=== PATIENT | female | born 1960 | race Caucasian/White ===

== ENCOUNTER → 2017-09-13 09:28 | Outpatient (CLI) | payer BC, SELFPAY ==
[2017-09-13 12:01] LABS: Absolute Lymphocyte Count 1.57 X10^3/ul (0.83-4.51); Absolute Neutrophil Count 4.3 X10^3/uL (2.0-7.7); Basophil# 0.02 X10^3/uL; Basophil% 0.3 % (0-1); Eosinophil# 0.13 X10^3/uL; Hematocrit 37.7 % (37-47); Hemoglobin 12.6 g/dl (12.0-15.0); Lymphocyte # 1.57 X10^3/ul (4.0); Lymphocyte % 24.7 % (19-41); Mean Corp Hgb Conc 33.4 g/gl (32-36); Mean Corpuscular Hgb 27.4 pg (27.0-32.0); Mean Platelet Vol. 10.5 fl (6.2-12.0); Monocyte# 0.38 X10^3/uL; Neutrophil # 4.25 X10^3/uL (2.7-7.7); Neutrophil % 66.8 % (47-70); Platelet Count 212 K/mm3 (150-450); RBC Distribution Width CV 13.1 % (11.6-14.6); RBC Distribution Width SD 38.8 fl (35.1-43.9); White Blood Count 6.4 K/mm3 (4.4-11.0)
[2017-09-13 12:08] LABS: POSITIVE COUNT NO; POSITIVE DIFFERENTIAL NO; POSITIVE MORPHOLOGY NO
[2017-09-13 12:30] LABS: Anion Gap 8 (5-15); BUN 15 mg/dL (7-18); BUN/Creat Ratio 17.6 RATIO (10-20); Calcium,Total 9.4 mg/dL (8.5-10.1); Chloride 101 mmol/L (98-107); Creatinine, Serum 0.85 mg/dL (0.55-1.02); EST Glomerular Filtration Rate 73 mL/min (>60); Est Glom Filt Rate - Afr Amer 88 mL/min (>60); Glucose 85 mg/dL (74-106); Potassium 3.8 mmol/L (3.5-5.1); Sodium Level 142 mmol/L (136-145); T4 Free Direct 0.97 ng/dL (0.76-1.46); Thyroid Stim Hormone (TSH) 1.72 uIU/mL (0.358-3.74)
== END ==
PROVIDERS: Family Provider Family Medicine; PCP Family Medicine; Visit Provider Family Medicine
DX: I10 Essential (primary) hypertension (principal); E66.01 Morbid (severe) obesity due to excess calories
CPT/HCPCS: 36415; 80048; 84439; 84443; 85025

== ENCOUNTER → 2018-02-18 08:49 | Outpatient (CLI) | payer BC, SELFPAY ==
[2016-10-07 07:17] VITALS: BMI 42.4
[2018-02-18 12:15] LABS: Absolute Lymphocyte Count 1.19 X10^3/ul (0.83-4.51); Absolute Neutrophil Count 2.9 X10^3/uL (2.0-7.7); Basophil# 0.02 X10^3/uL; Basophil% 0.4 % (0-1); Eosinophil# 0.07 X10^3/uL; Eosinophils% 1.6 % (0-5); Hematocrit 42.4 % (37-47); Hemoglobin 13.6 g/dl (12.0-15.0); Lymphocyte # 1.19 X10^3/ul (4.0); Lymphocyte % 26.7 % (19-41); Mean Corp Hgb Conc 32.1 g/gl (32-36); Mean Corpuscular Hgb 26.5 pg (27.0-32.0); Mean Corpuscular Volume 82.7 fL (81-99); Mean Platelet Vol. 10.5 fl (6.2-12.0); Monocyte% 6.7 % (0-10); Neutrophil # 2.88 X10^3/uL (2.7-7.7); Neutrophil % 64.6 % (47-70); Platelet Count 198 K/mm3 (150-450); RBC Distribution Width CV 13.2 % (11.6-14.6); RBC Distribution Width SD 39.9 fl (35.1-43.9); Red Blood Count 5.13 M/mm3 (4.2-5.4); White Blood Count 4.5 K/mm3 (4.4-11.0)
[2018-02-18 12:24] LABS: POSITIVE COUNT NO; POSITIVE DIFFERENTIAL NO; POSITIVE MORPHOLOGY NO
[2018-02-18 12:27] LABS: Anion Gap 9 (5-15); BUN 15 mg/dL (7-18); BUN/Creat Ratio 16.6 RATIO (10-20); Calcium,Total 9.1 mg/dL (8.5-10.1); Chloride 102 mmol/L (98-107); Creatinine, Serum 0.91 mg/dL (0.55-1.02); EST Glomerular Filtration Rate 68 mL/min (>60); Est Glom Filt Rate - Afr Amer 82 mL/min (>60); Glucose 90 mg/dL (74-106); Potassium 3.7 mmol/L (3.5-5.1); Sodium Level 142 mmol/L (136-145)
[2018-02-18 12:34] LABS: Vitamin B12 404 pg/mL (211-911); Vitamin D,25 Hydroxy 23.5 ng/mL (29.95-100.01)
[2018-02-18 14:01] LABS: Hemoglobin A1c 5.7 % (4.2-6.3)
== END ==
PROVIDERS: Family Provider Family Medicine; PCP Family Medicine; Visit Provider Family Medicine
DX: R73.01 Impaired fasting glucose (principal); I10 Essential (primary) hypertension; E55.9 Vitamin D deficiency, unspecified; R79.89 Other specified abnormal findings of blood chemistry
CPT/HCPCS: 36415; 80048; 82306; 82607; 83036; 85025

== ENCOUNTER → 2018-03-10 07:27 | Outpatient (CLI) | payer BC, SELFPAY ==
--- NOTE | 2018-03-10 07:30 | BI_ITS ---
MAMMOGRAPHY - BILATERAL SCREENING REASON FOR EXAM: Female, 57 years old. Routine annual screening examination. PERTINENT HISTORY: Non-contributory. TECHNIQUE: Digital bilateral breast kolby (3D mammographic acquisition) in the CC and MLO projections. 2-D mediolateral oblique (MLO) and craniocaudad (CC) views of both breasts were obtained. CAD: Full Field Digital Mammography with Computer Added Detection was performed. COMPARISON: Comparison is made with prior study dated April 29, 2016 and August 03, 2014. FINDINGS: Breast Composition: There are scattered areas of fibroglandular density. There are no dominant masses or suspicious calcifications. A tissue clip marker is once again seen within a tiny nodule in the upper outer quadrant of the left breast. No other significant abnormalities are identified. There has been no significant change since the prior study. BI/SCREENING MAMM (CAD), BILAT IMPRESSION: Stable bilateral screening mammogram. Yearly follow-up mammogram recommended. (A) ASSESSMENT CATEGORY: BIRADS Category 2: Benign. A letter regarding these results will be sent to the patient by the facility within 30 days. Approximately 10% of breast cancers are not detected by mammography. A normal mammogram should not delay biopsy of a clinically suspicious abnormality. [id number] Electronically Signed: Les Ma MD at 10:49 EST Tel [phone], Service support ,
--- OUTSIDE RECORDS SUMMARY | 2018-05-14 19:47 | XMS RPT_ITS | Clinical Summary ---
:[address] [facility] Address [address] [place] [address] Phone Care Team Providers Name Role Phone Marie Dean Unavailable Conditions or Problems Problem Problem Onset Status Entry Provider Comment Standard Annotate Name Code Date Date Description Orthopedic 336773070 Active Yandy Montiel Postoperative surgical (SNOMED 10/20 10/20 [facility] physical aftercare CT) examination Achilles 625859665 Active Babatunde Bansal Achilles bursitis, (SNOMED 04/21 04/[address]) Inflammato 1341010 Active Babatunde Bansal Arthritis ry (SNOMED 05/29 05/[address]) Sprain of S93.499A Active Yandy Montiel Sprain of other (ICD-10-CM 05/22 05/22 [facility] other ligament ligament ) of unspecified of ankle, initial unspecifie encounter d ankle, initial encounter Achilles 11602417 Active Yandy Montiel Achilles tendinitis (SNOMED 05/22 05/22 [facility] tendinitis , right CT) Fibrocysti 31008558 Active Radha Churchill Fibrocystic c breast (SNOMED 08/03 08/20 [facility] disease of changes CT) breast Other 727893721 Inactive Radha Churchill Abnormal abnormal (abnormal) (SNOMED 08/03 08/20 [facility] findings on lesion on findings CT) diagnostic left breast on imaging of ultrasound radiologic breast and al mammograms examinatio n of breast PES PLANUS 41342063 Active Yandy Montiel Pes planus (SNOMED 09/[address]) TENDINITIS 14890174 Active Yandy Montiel Tendinitis (SNOMED 09/[address]) LUMBAR 101565286 Active Yandy Montiel Disorder of DISC (SNOMED 09/30 [facility] lumbar disc DISORDER CT) BACK PAIN, 981810625 Active Yandy Montiel Low back pain LUMBAR (SNOMED 09/[address]) Medications Medication Instructions Start Stop Generic Name NDC Provider Date Date KEFLEX 500 MG one tablet by CEPHALEXIN [id number] Yandy Montiel CAPS mouth four 29 10/30 [place] times a day for 10 days NITROGLYCERIN apply to / NITROGLYCERIN [id number] Yandy Montiel 0.1 MG/HR PT24 affected area [place] and remove and replace every 2 days LISINOPRIL-HYDRO daily / LISINOPRIL-HYDRO 51933286447 Yandy Montiel CHLOROTHIAZIDE 08 CHLOROTHIAZIDE [place] 20-12.5 MG TABS B-12 5000 MCG daily / CYANOCOBALAMIN 89869110287 Yandy Montiel SUBL 08 [place] METHOTREXATE / METHOTREXATE 43789298216 Babatunde L TABS 28 SODIUM TABS Qiana Medications Administered No information available. Allergies, Adverse Reactions, Alerts Observed no known allergies at Results Date Name Value Unit Range Flag Description Replaced Document: (P) CBC W/Diff, Automated LYMPHCT AUTO 1.93 X10 3/UL 10*3/mm3 0.83-4.51 lymphocyte count, blood, automated ANC 4.5 X10 3/UL 10*3/mm3 2.0-7.7 neutrophil count, blood IMM GRANU % 0.100 % 0.0-0.9 immature granulocytes, percentage of total cells, blood BASOPHIL % 0.4 % 0-1 basophils as percent of blood leukocytes EOSINOPHIL % 1.6 % 0-5 eosinophils as percent of blood leukocytes MONOCYTE % 7.2 % 0-10 monocytes as percent of blood leukocytes LYMPHS % 27.4 % 19-41 lymphocytes as percent of blood leukocytes PMN % 63.3 % 47-70 neutrophils as percent of blood leukocytes MPV 10.4 fL 6.2-12.0 mean platelet volume PLATELETS 227 10*3/mm3 150-450 platelet count RDW-SD 38.9 fL 35.1-43.9 red blood cell distribution width, size density RDW 13.2 % 11.6-14.6 red blood cell distribution width MCHC RBC 32.8 G/GL g/dL 32-36 mean corpuscular hemoglobin concentration, RBC MCH 27.0 pg 27.0-32.0 mean corpuscular hemoglobin, RBC MCV 82.1 fL 81-99 mean corpuscular volume, RBC HCT 39.9 % 37-47 hematocrit, blood HGB 13.1 g/dL 12.0-15.0 hemoglobin, blood RBC M/UL 4.86 10*6/uL 4.2-5.4 red blood count WBC BLOOD 7.1 10*9/L 4.4-11.0 leukocyte (white blood cells) count, blood Lab Report: Erythrocyte Sed Rate ESR 10 mm/h 0-30 erythrocyte sedimentation rate Lab Report: Rheumatoid Factor RHEUMOT FACT 11.0 [iU]/mL <15 rheumatoid factor Lab Report: CRP CRP 0.517 mg/dL Units converted. See lab H C-reactive protein, serum report for original value. Lab Report: ANTINUCLEAR ANTIBODIES DIRECT GUNNER Negative Negative antinuclear antibody Lab Report: (P) Lyme Screen W/Reflex WB LYME DIS DNA <0.91 0.00-0.90 Borrelia burgdorferi (Lyme Disease,) DNA Lab Report: Lyme Screen W/Reflex WB LYME DIS INT REF LAB LYME DISEASE INTERPRETATION Office Visit MEDS REVIEW Done Documentation of current medications (procedure) SMOK STATUS Never smoker Tobacco use [facility] Plan of Care Type Date Detail Appointment 08:45 AM Yandy Paulino, [facility], [address], [place], [address], Referral [facility], [address] [place] [address], [address] Referral [facility], [address] [place] [address], [address] Referral Primary Care Physician Den Truong, [facility], [address] [place] [address], [address] Referral Primary Care Physician Den Truong, [facility], [address] [place] [address], [place], [address] Pending order MRI Joint Lower Extremity Pending order *CRP - C-Reative Protein Pending order *CBC with Differential Pending order *Sedimentation Rate (ESR) Pending order *GUNNER Pending order *RA Rheumatoid Factor - Quaint Pending order *LYMS Lyme Screen w/Reflx WB [id number] Pending order MRI Joint Lower Extremity Pending order Mammography; unilateral Pending order Bx Breast, device placement, US guidance Procedures Code Procedure Name Date Entry Date 62697-7 *CRP - C-Reative Protein 93013-1 *Sedimentation Rate (ESR) 0184-1 *CBC with Differential 9586-9 *LYMS Lyme Screen w/Reflx WB [id number] 3091/04/07 0270-1 *GUNNER Vital Signs Date Name Value Unit Description BMI (Body Mass Index) 43.09 kg/m2 Body Mass Index [Ratio] Body Temperature 97.6 [degF] temperature E&M BP Diastolic 90 mm[Hg] blood pressure, diastolic - 8462-4 BP Systolic 143 mm[Hg] blood pressure, systolic - 8480-6 BSA (Body Surface Area) 2.26 body surface area Heart Rate 78 /min pulse rate E&M - 8867-4 Respiratory Rate 16 /min respiratory rate E&M - 9279-1 Weight Measured 267 [lb_av] weight E&M - 3141-9 Height 66 [in_us] height E&M - 8302-2
--- OUTSIDE RECORDS SUMMARY | 2018-05-14 19:47 | XMS RPT_ITS | Clinical Summary ---
:1960 Author Organization [facility], [facility] Address [address] [place] [address] Phone Care Team Providers Name Role Phone Yandy Paulino Unavailable Conditions or Problems Problem Name Problem Onset Status Entry Provider Comment Standard Annotate Code Date Date Description Achilles 854189123 Active Babatunde Bansal Achilles bursitis, (SNOMED 04/21 04/[address]) Inflammatory 2995809 Active Babatunde Bansal Arthritis arthritis (SNOMED 05/29 05/[address]) Sprain of S93.499A Active Yandy Montiel Sprain of other (ICD-10-CM 05/22 05/22 [facility] other ligament of ) ligament of unspecified unspecified ankle, ankle, initial initial encounter encounter Achilles 46927108 Active Yandy Montiel Achilles tendinitis, (SNOMED 05/22 05/[address] [facility] [address]) Fibrocystic 43048724 Active Radha Churchill Fibrocystic breast (SNOMED 08/03 08/20 [facility] disease of changes CT) breast Other 104743117 Inactive Radha Churchill Abnormal abnormal (abnormal) (SNOMED 08/03 08/20 [facility] findings on lesion on findings on CT) diagnostic left breast radiological imaging of ultrasound examination breast and of breast mammograms PES PLANUS 27846328 Active Yandy Montiel Pes planus (SNOMED 09/[address]) TENDINITIS 54133130 Active Yandy Montiel Tendinitis (SNOMED 09/[address]) LUMBAR DISC 216448568 Active Yandy Montiel Disorder of DISORDER (SNOMED 09/[address]) BACK PAIN, 990869957 Active Yandy Montiel Low back LUMBAR (SNOMED 09/[address]) Medications Medication Instructions Start Stop Generic Name NDC Provider Date Date NITROGLYCERIN apply to NITROGLYCERIN [id number] Yandy Montiel 0.1 MG/HR PT24 affected [place] and remove and replace every 2 days LISINOPRIL-HYDRO daily LISINOPRIL-HYDRO 12205560133 Yandy Montiel CHLOROTHIAZIDE CHLOROTHIAZIDE [place] 20-12.5 MG TABS B-12 5000 MCG daily CYANOCOBALAMIN 78627998399 Yandy Montiel SUBL [place] METHOTREXATE METHOTREXATE 07675608333 Babatunde L TABS / SODIUM TABS Qiana Medications Administered No information available. Allergies, Adverse Reactions, Alerts Observed no known allergies at Results Date Name Value Unit Range Flag Description Replaced Document: (P) CBC W/Diff, Automated LYMPHCT AUTO 1.93 X10 10*3/mm3 0.83-4.51 lymphocyte 3/UL count, blood, automated ANC 4.5 X10 10*3/mm3 2.0-7.7 neutrophil 3/UL count, blood IMM GRANU % 0.100 % [...] Report: CRP CRP 0.517 mg/dL Units converted. H C-reactive See lab report protein, serum for original value. Lab Report: ANTINUCLEAR ANTIBODIES DIRECT GUNNER Negative Negative antinuclear antibody Lab Report: (P) Lyme Screen W/Reflex WB LYME DIS <0.91 0.00-0.90 Borrelia DNA burgdorferi (Lyme Disease,) DNA Lab Report: Lyme Screen W/Reflex WB LYME DIS INT REF LAB LYME DISEASE INTERPRETATION Office Visit MEDS REVIEW Done Documentation of current medications (procedure) SMOK STATUS Never smoker Tobacco use [facility] Plan of Care Type Date Detail Appointment 08:15 AM Yandy Paulino, [facility], [address], [place], [address], Referral Primary Care Physician Den Truong, [facility] [place], [address] [place] [address], [facility] [place], [address] Referral Primary Care Physician Den Truong, [facility] [place], [address] [place] [address] [place], [address] Pending order MRI Joint Lower Extremity Pending order *CRP - C-Reative Protein Pending order *CBC with Differential Pending order *Sedimentation Rate (ESR) Pending order *GUNNER Pending order *RA Rheumatoid Factor - Quaint Pending order *LYMS Lyme Screen w/Reflx WB [id number] Pending order MRI Joint Lower Extremity Pending order Mammography; unilateral Pending order Bx Breast, device placement, US guidance Procedures Code Procedure Name Date Entry Date 98343-1 *CRP - C-Reative Protein 10161-4 *Sedimentation Rate (ESR) 0184-1 *CBC with Differential 9586-9 *LYMS Lyme Screen w/Reflx WB [id number] 3659-1 *GUNNER Vital Signs Date Name Value Unit Description BMI (Body Mass Index) 43.09 kg/m2 Body Mass Index [Ratio] Body Temperature 97.6 [degF] temperature E&M BP Diastolic 90 mm[Hg] blood pressure, diastolic - 8462-4 BP Systolic 143 mm[Hg] blood pressure, systolic - 8480-6 BSA (Body Surface 2.26 body surface area Area) Heart Rate 78 /min pulse rate E&M - 8867-4 O2 % BldC Oximetry 96 % oxygen saturation, oximetry Respiratory Rate 16 /min respiratory rate E&M - 9279-1 Weight Measured 267 [lb_av] weight E&M - 3141-9 Height 66 [in_us] height E&M - 8302-2
--- OUTSIDE RECORDS SUMMARY | 2018-05-14 19:47 | XMS RPT_ITS | Clinical Summary ---
:1960 Author Organization [facility], [facility] Address [address] [place] [address] Phone Care Team Providers Name Role Phone Yandy Paulino Unavailable Conditions or Problems Problem Problem Onset Status Entry Provider Comment Standard Annotate Name Code Date Date Description Orthopedic 362163553 Active Yandy Montiel Postoperative surgical (SNOMED 10/20 10/[address] [facility] [address]) examination Achilles 018581164 Active Babatunde Bansal Achilles bursitis, (SNOMED 04/21 04/[address]) Inflammato 9163222 Active Babatunde Bansal Arthritis ry (SNOMED 05/29 05/[address]) Sprain of S93.499A Active Yandy Montiel [facility] of other ([facility] ) of unspecified of ankle, initial unspecifie encounter d ankle, initial encounter Achilles 22965420 Active Yandy Montiel Achilles tendinitis (SNOMED 05/22 05/22 [facility] tendinitis , right CT) Fibrocysti 00557434 Active Radha Churchill Fibrocystic c breast (SNOMED 08/03 08/20 [facility] disease of changes CT) breast Other 538968659 Inactive Radha Churchill Abnormal abnormal (abnormal) (SNOMED 08/03 08/20 [facility] findings on lesion on findings CT) diagnostic left breast on imaging of ultrasound radiologic breast and al mammograms examinatio n of breast PES PLANUS 55322605 Active Yandy Montiel [facility] TENDINITIS 19357956 Active Yandy Montiel Tendinitis (SNOMED 09/[address]) LUMBAR 517579256 Active Yandy Montiel Disorder of DISC (SNOMED 09/30 [facility] lumbar disc DISORDER CT) BACK PAIN, 533112638 Active Yandy Montiel Low back pain LUMBAR (SNOMED 09/[address]) Medications Medication Instructions Start Stop Generic Name NDC Provider Date Date KEFLEX 500 MG one tablet by CEPHALEXIN 14592393199 Yandy Montiel CAPS mouth 10/30 [place] times a day for 10 days NITROGLYCERIN apply to NITROGLYCERIN [id number] Yandy Montiel 0.1 MG/HR PT24 affected area [place] and remove and replace every 2 days NITROGLYCERIN apply to NITROGLYCERIN 79271295488 Yandy Montiel 0.1 MG/HR PT24 affected area 03/21 [place] and remove and replace every 2 days METHOTREXATE METHOTREXATE 87978383042 Babatunde L TABS SODIUM TABS Qiana METHOTREXATE METHOTREXATE 64338856283 Yandy Montiel TABS 28 03/21 SODIUM TABS [place] LISINOPRIL-HYDRO daily LISINOPRIL-HYDROC 16332743719 Yandy Montiel CHLOROTHIAZIDE HLOROTHIAZIDE [place] 20-12.5 MG TABS B-12 5000 MCG daily CYANOCOBALAMIN 34265344027 Yandy Montiel SUBL [place] EQL VITAMIN D3 CHOLECALCIFEROL 11272977321 Yandy Montiel 2000 UNIT CAPS [place] DAILY VALUE MULTIPLE VITAMIN 54927811061 Yandy Montiel MULTIVITAMIN [place] TABS Medications Administered No information available. Allergies, Adverse [...] (procedure) SMOK STATUS Never smoker Tobacco use [facility] Plan of Care Type Date Detail Referral [facility], [address] [place] [address], [address] Referral [facility] Therapy [facility], [address] [place] [address], [address] [facility] [address] [place] [address], [address] [facility] [address] [place] [address], [address] Pending order MRI Joint Lower Extremity Pending order *CRP - C-Reative Protein Pending order *CBC with Differential Pending order *Sedimentation Rate (ESR) Pending order *GUNNER Pending order *RA Rheumatoid Factor - Quaint Pending order *LYMS Lyme Screen w/Reflx WB [id number] Pending order MRI Joint Lower Extremity Pending order Mammography; unilateral Pending order Bx Breast, device placement, US guidance Procedures Code Procedure Name Date Entry Date 48592-9 *CRP - C-Reative Protein 30468-1 *Sedimentation Rate (ESR) 0184-1 *CBC with Differential 9586-9 *LYMS Lyme Screen w/Reflx WB [id number] 9268/04/07 0270-1 *GUNNER Vital Signs Date Name Value [...]
--- OUTSIDE RECORDS SUMMARY | 2018-05-14 19:47 | XMS RPT_ITS | Clinical Summary ---
:1960 Author Organization [facility], [facility] Address [address] [place] [address] Phone Care Team Providers Name Role Phone Yandy Paulino Unavailable Conditions or Problems Problem Name Problem Onset Status Entry Provider Comment Standard Annotate Code Date Date Description Achilles 163297589 Active Babatunde Bansal Achilles bursitis, (SNOMED 04/21 04/[address]) Inflammatory 2824786 Active Babatunde Bansal Arthritis arthritis (SNOMED 05/29 05/[address]) Sprain of S93.499A Active Yandy Montiel Sprain of other (ICD-10-CM 05/22 05/22 [facility] other ligament of ) ligament of unspecified unspecified ankle, ankle, initial initial encounter encounter Achilles 95914743 Active Yandy Montiel Achilles tendinitis, (SNOMED 05/22 05/[address] [place] [address]) Fibrocystic 67630177 Active Radha Churchill Fibrocystic breast (SNOMED 08/03 08/20 [facility] disease of changes CT) breast Other 422976329 Inactive Radha Churchill Abnormal abnormal (abnormal) (SNOMED 08/03 08/20 [facility] findings on lesion on findings on CT) diagnostic left breast radiological imaging of ultrasound examination breast and of breast mammograms PES PLANUS 99432351 Active Yandy Montiel Pes planus (SNOMED 09/[address]) TENDINITIS 19333531 Active Yandy Montiel Tendinitis (SNOMED 09/[address]) LUMBAR DISC 793129039 Active Yandy Montiel Disorder of DISORDER (SNOMED 09/[address]) BACK PAIN, 551454069 Active Yandy Montiel Low back LUMBAR (SNOMED 09/[address]) Medications Medication Instructions Start Stop Generic Name NDC Provider Date Date NITROGLYCERIN apply to / NITROGLYCERIN [id number] Yandy Montiel 0.1 MG/HR PT24 affected area 02 [place] and remove and replace every 2 days LISINOPRIL-HYDRO daily / LISINOPRIL-HYDRO 05053762955 Yandy Montiel CHLOROTHIAZIDE 08 CHLOROTHIAZIDE [place] 20-12.5 MG TABS B-12 5000 MCG daily / CYANOCOBALAMIN 14849257557 Yandy Montiel SUBL 08 [place] METHOTREXATE / METHOTREXATE 99909585371 Babatunde L TABS 28 SODIUM TABS Qiana [...] REF LAB LYME DISEASE INTERPRETATION Office Visit SMOK STATUS Never smoker Tobacco use [facility] MEDS REVIEW Done Documentation of current medications (procedure) Plan of Care Type Date Detail Appointment 08:00 AM Yandy Paulino, [address] [place] [address], [address], [place], [address], Referral Primary Care Physician Den Truong, [facility], [address] [place] [address] [place], [address] Referral Primary Care Physician Den Truong, [facility], [address] [place] [address] [place], [address] Pending order MRI Joint Lower Extremity Pending order *CRP - C-Reative Protein Pending order *CBC with Differential Pending order *Sedimentation Rate (ESR) Pending order *GUNNER Pending order *RA Rheumatoid Factor - Quaint Pending order *LYMS Lyme Screen w/Reflx WB [id number] Pending order MRI Joint Lower Extremity Pending order Mammography; unilateral Pending order Bx Breast, device placement, US guidance Procedures Code Procedure Name Date Entry Date 64487-8 *CRP - C-Reative Protein 77081-0 *Sedimentation Rate (ESR) 0184-1 *CBC with Differential 9586-9 *LYMS Lyme Screen w/Reflx WB [id number] 2887/04/07 0270-1 *GUNNER Vital Signs Date Name Value [...]
--- OUTSIDE RECORDS SUMMARY | 2018-05-14 19:47 | XMS RPT_ITS | Clinical Summary ---
:1960 Author Organization [facility] Address [address] [place] [address] Phone Care Team Providers Name Role Phone Yandy Paulino Unavailable Conditions or Problems Problem Problem Onset Status Entry Provider Comment Standard Annotate Name Code Date Date Description Orthopedic 568597279 Active Yandy Montiel Postoperative surgical (SNOMED 10/20 10/[address] [facility] [address]) examination Achilles 599017250 Active Babatunde Bansal Achilles bursitis, (SNOMED 04/21 04/[address] [place]) Inflammato 5532953 Active Babautnde Bansal Arthritis ry (SNOMED 05/29 05/[address]) Sprain of S93.499A Active Yandy Montiel Sprain of other ([facility]10-CM [facility]22 [facility] ) of unspecified of ankle, initial unspecifie encounter d ankle, initial encounter Achilles 71509232 Active Yandy Montiel Achilles tendinitis (SNOMED 05/22 05/22 [facility] tendinitis , right CT) Fibrocysti 09861214 Active Radha Churchill Fibrocystic c breast (SNOMED 08/03 08/20 [facility] disease of changes CT) breast Other 510949805 Inactive Radha Churchill Abnormal abnormal (abnormal) (SNOMED 08/03 08/20 [facility] findings on lesion on findings CT) diagnostic left breast on imaging of ultrasound radiologic breast and al mammograms examinatio n of breast PES PLANUS 60200366 Active Yandy Montiel [facility] TENDINITIS 77132719 Active Yandy Montiel Tendinitis (SNOMED 09/[address]) LUMBAR 292931041 Active Yandy Montiel Disorder of DISC (SNOMED 09/30 [facility] lumbar disc DISORDER CT) BACK PAIN, 986531421 Active Yandy Montiel Low back pain LUMBAR (SNOMED 09/[address]) Medications Medication Instructions Start Stop Generic Name NDC Provider Date Date KEFLEX 500 MG one tablet by CEPHALEXIN 78128649327 Yandy Montiel CAPS mouth four 29 10/30 [place] times a day for 10 days NITROGLYCERIN apply to / NITROGLYCERIN 40526890427 Yandy Montiel 0.1 MG/HR PT24 affected area [place] and remove and replace every 2 days LISINOPRIL-HYDRO daily / LISINOPRIL-HYDRO 27003634471 Yandy Montiel CHLOROTHIAZIDE 08 CHLOROTHIAZIDE [place] 20-12.5 MG TABS B-12 5000 MCG daily / CYANOCOBALAMIN 50968818989 Yandy Montiel SUBL 08 [place] METHOTREXATE / METHOTREXATE 01646093522 Babatunde L TABS 28 SODIUM TABS Qiana [...] (procedure) SMOK STATUS Never smoker Tobacco use [facility] Plan of Care Type Date Detail Appointment 09:30 AM Yandy Paulino, [address] [place] [address], [address], [place], [address], Referral Primary Care Physician Den Truong, [facility], [address] [place] [address], [facility] [place], [address] Referral Primary Care Physician Den Truong, [facility], [address] [place] [address], [facility] [place], [address] Pending order MRI Joint Lower Extremity Pending order *CRP - C-Reative Protein Pending order *CBC with Differential Pending order *Sedimentation Rate (ESR) Pending order *GUNNER Pending order *RA Rheumatoid Factor - Quaint Pending order *LYMS Lyme Screen w/Reflx WB [id number] Pending order MRI Joint Lower Extremity Pending order Mammography; unilateral Pending order Bx Breast, device placement, US guidance Procedures Code Procedure Name Date Entry Date 63767-1 *CRP - C-Reative Protein 53481-2 *Sedimentation Rate (ESR) 0184-1 *CBC with Differential 9586-9 *LYMS Lyme Screen w/Reflx WB 042173 7142/04/07 0270-1 *GUNNER Vital Signs Date Name Value [...]
--- OUTSIDE RECORDS SUMMARY | 2018-05-14 19:47 | XMS RPT_ITS | Clinical Summary ---
:1960 Author Organization [facility] Address [address] [place] [address] Phone Care Team Providers Name Role Phone Marie Dean Unavailable Conditions or Problems Problem Problem Onset Status Entry Provider Comment Standard Annotate Name Code Date Date Description Orthopedic 304988497 Active Yandy Montiel Postoperative surgical (SNOMED 10/20 10/20 [facility] physical aftercare CT) examination Achilles 294280781 Active Babatunde Bansal Achilles bursitis, (SNOMED 04/21 04/[address]) Inflammato 1304556 Active Babatunde Bansal Arthritis ry (SNOMED 05/29 05/[address]) Sprain of S93.499A Active Yandy Montiel Sprain of other (ICD-10-CM 05/22 05/22 [facility] other ligament ligament ) of unspecified of ankle, initial unspecifie encounter d ankle, initial encounter Achilles 16760638 Active Yandy Montiel Achilles tendinitis (SNOMED 05/22 05/22 [facility] tendinitis , right CT) Fibrocysti 16633825 Active Radha Churchill Fibrocystic c breast (SNOMED 08/03 08/20 [facility] disease of changes CT) breast Other 296850171 Inactive Radha Churchill Abnormal abnormal (abnormal) (SNOMED 08/03 08/20 [facility] findings on lesion on findings CT) diagnostic left breast on imaging of ultrasound radiologic breast and al mammograms examinatio n of breast PES PLANUS 43361256 Active Yandy Montiel Pes planus (SNOMED 09/[address]) TENDINITIS 73479622 Active Yandy Montiel Tendinitis (SNOMED 09/[address]) LUMBAR 909837446 Active Yandy Montiel Disorder of DISC (SNOMED 09/30 [place] lumbar disc DISORDER CT) BACK PAIN, 360119738 Active Yandy Montiel Low back pain LUMBAR (SNOMED 09/[address]) Medications Medication Instructions Start Stop Generic Name NDC Provider Date Date KEFLEX 500 MG one tablet by CEPHALEXIN [id number] Yandy Montiel CAPS mouth four 29 10/30 [place] times a day for 10 days NITROGLYCERIN apply to / NITROGLYCERIN [id number] Yandy Montiel 0.1 MG/HR PT24 affected area [place] and remove and replace every 2 days LISINOPRIL-HYDRO daily / LISINOPRIL-HYDRO 44174611092 Yandy Montiel CHLOROTHIAZIDE 08 CHLOROTHIAZIDE [place] 20-12.5 MG TABS B-12 5000 MCG daily / CYANOCOBALAMIN 03674814179 Yandy Montiel SUBL 08 [place] METHOTREXATE / METHOTREXATE 66562786345 Babatunde L TABS 28 SODIUM TABS [place] [...] (procedure) SMOK STATUS Never smoker Tobacco use [facility] Plan of Care Type Date Detail Appointment 08:45 AM Yandy Paulino, [facility], [address], [place], [address], Referral [facility], [address] [place] [address], [address] Referral Physical Therapy [facility], [address] [place] [address], [address] Referral Primary Care Physician Den Truong, [facility], [address] [place] [address], [address] Referral Primary Care Physician Den Truong, [facility], [address] [place] [address], [place], [address] Pending order MRI Joint Lower Extremity Pending order *CRP - C-Reative Protein Pending order *CBC with Differential Pending order *Sedimentation Rate (ESR) Pending order *GUNNER Pending order *RA Rheumatoid Factor - Quaint Pending order *LYMS Lyme Screen w/Reflx WB [id number] Pending order MRI Joint Lower Extremity Pending order Mammography; unilateral Pending order Bx Breast, device placement, US guidance Procedures Code Procedure Name Date Entry Date 72854-3 *CRP - C-Reative Protein 70020-8 *Sedimentation Rate (ESR) 0184-1 *CBC with Differential 9586-9 *LYMS Lyme Screen w/Reflx WB [id number] 1614/04/07 0270-1 *GUNNER Vital Signs Date Name Value [...]
--- OUTSIDE RECORDS SUMMARY | 2018-05-14 19:47 | XMS RPT_ITS | Clinical Summary ---
:1960 Author Organization [facility], [facility] Address [address] [place] [address] Phone Care Team Providers Name Role Phone Yandy Paulino Unavailable Conditions or Problems Problem Problem Onset Status Entry Provider Comment Standard Annotate Name Code Date Date Description Orthopedic 523784872 Active Yandy Montiel Postoperative surgical (SNOMED 10/20 10/[address] [facility] [address]) examination Achilles 951364554 Active Babatunde Bansal Achilles bursitis, (SNOMED 04/21 04/[address] [place] [address]) Inflammato 6212336 Active Babatunde Bansal Arthritis ry (SNOMED 05/29 05/[address]) Sprain of S93.499A Active Yandy Montiel Sprain of other ([facility] ) of unspecified of ankle, initial unspecifie encounter d ankle, initial encounter Achilles 33054786 Active Yandy Montiel Achilles tendinitis (SNOMED 05/22 05/22 [facility] tendinitis , right CT) Fibrocysti 41317045 Active Radha Churchill Fibrocystic c breast (SNOMED 08/03 08/20 [facility] disease of changes CT) breast Other 701330239 Inactive Radha Churchill Abnormal abnormal (abnormal) (SNOMED 08/03 08/20 [facility] findings on lesion on findings CT) diagnostic left breast on imaging of ultrasound radiologic breast and al mammograms examinatio n of breast PES PLANUS 01764847 Active Yandy Montiel [facility] TENDINITIS 10190247 Active Yandy Montiel Tendinitis (SNOMED 09/[address]) LUMBAR 723946030 Active Yandy Montiel Disorder of DISC (SNOMED 09/30 [place] lumbar disc DISORDER CT) BACK PAIN, 205286990 Active Yandy Montiel Low back pain LUMBAR (SNOMED 09/[address]) Medications Medication Instructions Start Stop Generic Name NDC Provider Date Date KEFLEX 500 MG one tablet by CEPHALEXIN [id number] Yandy Montiel CAPS mouth four 29 10/30 [place] times a day for 10 days NITROGLYCERIN apply to / NITROGLYCERIN 24507176314 Yandy Montiel 0.1 MG/HR PT24 affected area [place] and remove and replace every 2 days LISINOPRIL-HYDRO daily / LISINOPRIL-HYDRO 13258435109 Yandy Montiel CHLOROTHIAZIDE 08 CHLOROTHIAZIDE [place] 20-12.5 MG TABS B-12 5000 MCG daily / CYANOCOBALAMIN 23772623587 Yandy Montiel SUBL 08 [place] METHOTREXATE / METHOTREXATE 47903409595 Babatunde L TABS 28 SODIUM TABS [place]iana [...] (procedure) SMOK STATUS Never smoker Tobacco use [facility] Plan of Care Type Date Detail Appointment 03:15 PM Yandy Paulino, [address] [place] [address], [address], [place], [address], Appointment 08:45 AM Yandy Paulino, [address] [facility], [address], [place], [address], Referral Primary Care Physician Den Truong, [facility], [address] [place] [address], [place], [place], [address] Referral Primary Care Physician Den Truong, [facility], [address] [place] [address], [facility], [place], [address] Pending order MRI Joint Lower Extremity Pending order *CRP - C-Reative Protein Pending order *CBC with Differential Pending order *Sedimentation Rate (ESR) Pending order *GUNNER Pending order *RA Rheumatoid Factor - Quaint Pending order *LYMS Lyme Screen w/Reflx WB [id number] Pending order MRI Joint Lower Extremity Pending order Mammography; unilateral Pending order Bx Breast, device placement, US guidance Procedures Code Procedure Name Date Entry Date 94741-1 *CRP - C-Reative Protein 70542-8 *Sedimentation Rate (ESR) 0184-1 *CBC with Differential 9586-9 *LYMS Lyme Screen w/Reflx WB [id number] 2828/04/07 0270-1 *GUNNER Vital Signs Date Name Value [...]
--- OUTSIDE RECORDS SUMMARY | 2018-05-14 19:47 | XMS RPT_ITS | Clinical Summary ---
:1960 Author Organization [facility], [facility] Address [address] [place] [address] Phone Care Team Providers Name Role Phone Yandy Paulino Unavailable Conditions or Problems Problem Problem Onset Status Entry Provider Comment Standard Annotate Name Code Date Date Description Orthopedic 191915233 Active Yandy Montiel Postoperative surgical (SNOMED 10/20 10/[address] [facility] [address]) examination Achilles 365826125 Active Babatunde Bansal Achilles bursitis, (SNOMED 04/21 04/[address] [place] [address]) Inflammato 3428687 Active Babatunde Bansal Arthritis ry (SNOMED 05/29 05/[address]) Sprain of S93.499A Active Yandy Montiel Sprain of other (ICD-10-CM [facility]/22 [facility] ) of unspecified of ankle, initial unspecifie encounter d ankle, initial encounter Achilles 87577262 Active Yandy Montiel Achilles tendinitis (SNOMED 05/22 05/22 [facility] tendinitis , right CT) Fibrocysti 18458070 Active Radha Churchill Fibrocystic c breast (SNOMED 08/03 08/20 [facility] disease of changes CT) breast Other 277168491 Inactive Radha Churchill Abnormal abnormal (abnormal) (SNOMED 08/03 08/20 [facility] findings on lesion on findings CT) diagnostic left breast on imaging of ultrasound radiologic breast and al mammograms examinatio n of breast PES PLANUS 06087394 Active Yandy Montiel [facility] TENDINITIS 32897995 Active Yandy Montiel Tendinitis (SNOMED 09/[address]) LUMBAR 917077294 Active Yandy Montiel Disorder of DISC (SNOMED 09/30 [place] lumbar disc DISORDER CT) BACK PAIN, 962342753 Active Yandy Montiel Low back pain LUMBAR (SNOMED 09/[address]) Medications Medication Instructions Start Stop Generic Name NDC Provider Date Date KEFLEX 500 MG one tablet by CEPHALEXIN 08153349735 Yandy Montiel CAPS mouth four 29 10/30 [place] times a day for 10 days NITROGLYCERIN apply to / NITROGLYCERIN 14575105294 Yandy Monitel 0.1 MG/HR PT24 affected area [place] and remove and replace every 2 days LISINOPRIL-HYDRO daily / LISINOPRIL-HYDRO 97170511929 Yandy Montiel CHLOROTHIAZIDE 08 CHLOROTHIAZIDE [place] 20-12.5 MG TABS B-12 5000 MCG daily / CYANOCOBALAMIN 82157009926 Yandy Montiel SUBL 08 [place] METHOTREXATE / METHOTREXATE 61944466470 Babatunde L TABS 28 SODIUM TABS Qiana [...] (procedure) SMOK STATUS Never smoker Tobacco use [facility] Plan of Care Type Date Detail Appointment 09:30 AM Yandy Paulino, [address] [place] [address], [address], [place], [address], Referral Primary Care Physician Den Truong, [facility], [address] [place] [address], [facility] [place], [address] Referral Primary Care Physician Den Truong, [facility], [address] [place] [address], [facility] [place], [address] Pending order MRI Joint Lower Extremity Pending order *CRP - C-Reative Protein Pending order *CBC with Differential Pending order *Sedimentation Rate (ESR) Pending order *GUNNER Pending order *RA Rheumatoid Factor - Quaint Pending order *LYMS Lyme Screen w/Reflx WB [id number] Pending order MRI Joint Lower Extremity Pending order Mammography; unilateral Pending order Bx Breast, device placement, US guidance Procedures Code Procedure Name Date Entry Date 73802-4 *CRP - C-Reative Protein 56484-9 *Sedimentation Rate (ESR) 0184-1 *CBC with Differential 9586-9 *LYMS Lyme Screen w/Reflx WB [id number] 1720/04/07 0270-1 *GUNNER Vital Signs Date Name Value [...]
--- OUTSIDE RECORDS SUMMARY | 2018-05-14 19:48 | XMS RPT_ITS | Clinical Summary ---
:1960 Author Organization [facility], [facility] Address [address] [place] [address] Phone Care Team Providers Name Role Phone Yandy Paulino Unavailable Conditions or Problems Problem Name Problem Onset Status Entry Provider Comment Standard Annotate Code Date Date Description Achilles 468134551 Active Babatunde Bansal Achilles bursitis, (SNOMED 04/21 04/[address] [place] [address]) Inflammatory 0252919 Active Babatunde Bansal Arthritis arthritis (SNOMED 05/29 05/[address]) Sprain of S93.499A Active Yandy Montiel Sprain of other (ICD-10-CM 05/22 05/22 [place] other ligament of ) ligament of unspecified unspecified ankle, ankle, initial initial encounter encounter Achilles 14480287 Active Yandy Montiel Achilles tendinitis, (SNOMED 05/22 05/[address] [place] [address]) Fibrocystic 19894015 Active Radha Churchill Fibrocystic breast (SNOMED 08/03 08/20 [facility] disease of changes CT) breast Other 621946099 Inactive Radha Churchill Abnormal abnormal (abnormal) (SNOMED 08/03 08/20 [facility] findings on lesion on findings on CT) diagnostic left breast radiological imaging of ultrasound examination breast and of breast mammograms PES PLANUS 78977322 Active Yandy Montiel Pes planus (SNOMED 09/[address]) TENDINITIS 98567411 Active Yandy Montiel Tendinitis (SNOMED 09/[address]) LUMBAR DISC 872952191 Active Yandy Montiel Disorder of DISORDER (SNOMED 09/[address]) BACK PAIN, 304489047 Active Yandy Montiel Low back LUMBAR (SNOMED 09/[address]) Medications Medication Instructions Start Stop Generic Name NDC Provider Date Date NITROGLYCERIN apply to / NITROGLYCERIN [id number] Yandy Montiel 0.1 MG/HR PT24 affected area 02 [place] and remove and replace every 2 days LISINOPRIL-HYDRO daily / LISINOPRIL-HYDRO 43144562368 Yandy Montiel CHLOROTHIAZIDE 08 CHLOROTHIAZIDE [place] 20-12.5 MG TABS B-12 5000 MCG daily / CYANOCOBALAMIN 00734655059 Yandy Montiel SUBL 08 [place] METHOTREXATE / METHOTREXATE 66896458928 Babatunde L TABS 28 SODIUM TABS Qiana [...] Visit SMOK STATUS Never smoker Tobacco use [facility] MEDS REVIEW Done Documentation of current medications (procedure) Plan of Care Type Date Detail Appointment 08:00 AM Yandy Paulino, [address] [place] [address], [address], [place], [address], Appointment 09:30 AM Yandy Paulino, [address] [place] [address], [address], [place], [address], Referral Primary Care Physician Den Truong, [facility], [address] [place] [address], [place], [address] Referral Primary Care Physician Den Truong, [facility], [address] [place] [address] [place], DAHLIA Weiss, [address] Pending order MRI Joint Lower Extremity Pending order *CRP - C-Reative Protein Pending order *CBC with Differential Pending order *Sedimentation Rate (ESR) Pending order *GUNNER Pending order *RA Rheumatoid Factor - Quaint Pending order *LYMS Lyme Screen w/Reflx WB [id number] Pending order MRI Joint Lower Extremity Pending order Mammography; unilateral Pending order Bx Breast, device placement, US guidance Procedures Code Procedure Name Date Entry Date 86400-1 *CRP - C-Reative Protein 11842-8 *Sedimentation Rate (ESR) 0184-1 *CBC with Differential 9586-9 *LYMS Lyme Screen w/Reflx WB [id number] 2453/04/07 0270-1 *GUNNER Vital Signs Date Name Value [...]
--- OUTSIDE RECORDS SUMMARY | 2018-05-14 19:48 | XMS RPT_ITS ---
:1960 Author Organization OH[facility] Care Team Providers Name Role Phone Den Truong Attending Unavailable Den Truong Primary Care Unavailable Den Truong Attending Unavailable Den Truong Referring Unavailable Den Truong Primary Care Unavailable Den Truong Attending Unavailable Den Truong Primary Care Unavailable PROBLEMS PROBLEMS No Problem Records FoundPROCEDURES PROCEDURES No Procedure Records FoundRESULTS RESULTS SCREENING MAMM (CAD), Observed: 03/10/2018 Status: F Source: [place] 7:31 AM [facility] REPOSITORY [facility] Imaging Services [address] [place] [address] SCREENING MAMM (CAD), BILAT MR#: [id number] Acct: [id number] Name: JAMIN MADDEN Rep #: [id number] : 1960 F 57 From: Les Ma MD PCP: Den Truong MD Status: REG CLI Study: SCREENING MAMM (CAD), BILAT Date of Exam: 03/10/18 Exam# [id number] Ordering Dr: Den Truong MD MAMMOGRAPHY - BILATERAL SCREENING REASON FOR EXAM: Female, 57 years old. Routine annual screening examination. PERTINENT HISTORY: Non-contributory. TECHNIQUE: Digital bilateral breast kolby (3D mammographic acquisition) in the CC and MLO projections. 2-D mediolateral oblique (MLO) and craniocaudad (CC) views of both breasts were obtained. CAD: Full Field Digital Mammography with Computer Added Detection was performed. COMPARISON: Comparison is made with prior study dated April 29, 2016 and August 03, 2014. FINDINGS: Breast Composition: There are scattered areas of fibroglandular density. There are no dominant masses or suspicious calcifications. A tissue clip marker is once again seen within a tiny nodule in the upper outer quadrant of the left breast. No other significant abnormalities are identified. There has been no significant change since the prior study. BI/SCREENING MAMM (CAD), BILAT IMPRESSION: Stable bilateral screening mammogram. Yearly follow-up mammogram recommended. (A) ASSESSMENT CATEGORY: BIRADS Category 2: Benign. A letter regarding these results will be sent to the patient by the facility within 30 days. Approximately 10% of breast cancers are not detected by mammography. A normal mammogram should not delay biopsy of a clinically suspicious abnormality. [id number] Electronically Signed: Les Ma MD at 10:49 EST Tel [phone], Service support , CC: Den Truong MD Director Voice: Signed CBC W/DIFF, AUTOMATED Collected: 02/18/2018 Status: F Source: [place] 8:52 AM [facility] REPOSITORY TYPE CODE TESTS RESULT OUT OF RANGE REFERENCE UNITS LAB L100.1000 4.4-11.0 K/mm3 Normal WBC 4.5 LAB L100.1200 4.2-5.4 M/mm3 Normal RBC 5.13 LAB L100.1300 12.0-15.0 g/dl Normal HGB 13.6 LAB L100.1400 37-47 % Normal HCT 42.4 LAB L100.1500 81-99 fL Normal MCV 82.7 LAB L100.1600 27.0-32.0 pg Low MCH 26.5 LAB L100.1700 32-36 g/gl Normal MCHC 32.1 LAB L100.1810 11.6-14.6 % Normal RDW CV 13.2 LAB L100.1820 35.1-43.9 fl Normal RDW SD 39.9 LAB L100.1900 150-450 K/mm3 Normal PLT 198 LAB L100.2000 6.2-12.0 fl Normal MPV 10.5 LAB L100.2100 47-70 % Normal NEUT% 64.6 LAB L100.2200 19-41 % Normal LY% 26.7 LAB L100.2300 0-10 % Normal MONO% 6.7 LAB L100.2400 0-5 % Normal EO% 1.6 LAB L100.2500 0-1 % Normal BASO% 0.4 LAB L100.2550 0.0-0.9 % Normal IM GRAN % 0.000 Result Comment: IG% - Immature Granulocytes (promyelocytes, myelocytes and metamyelocytes) > 1% indicates that a LEFT SHIFT is Present. LAB L100.2620 2.0-7.7 X10 3/uL Normal Absolute Neut 2.9 LAB L100.2720 0.83-4.51 X10 3/ul Normal Absolute Lymph 1.19 Performed By: #### L100.0100 #### [facility] [address] [place], [address] BASIC METABOLIC Collected: 02/18/2018 Status: F Source: [place] PROFILE ([facility]) 8:52 AM [facility] REPOSITORY TYPE CODE TESTS RESULT OUT OF RANGE REFERENCE UNITS LAB L501.0100 74-106 mg/dL Normal GLU 90 Result Comment: Please note revised GLUCOSE reference range effective 2017. LAB L501.1000 7-18 mg/dL Normal BUN 15 LAB L501.1100 0.55-1.02 mg/dL Normal CREAT,SERUM 0.91 Result Comment: The validity of the calculated GFR AND GFRAA in patients over 70 years has not been determined. Clinical correlation is essential. LAB L501.1110 >60 mL/min Normal EST GFR 68 Result Comment: Non- GFR Calc LAB L501.1115 >60 mL/min Normal EST GFR - AA 82 Result Comment: GFR Calc LAB L501.1300 10-20 RATIO Normal BUN/CRE 16.6 LAB L501.2200 8.5-10.1 mg/dL CA Normal 9.1 LAB L501.5300 136-145 mmol/L NA Normal 142 LAB L501.5600 3.5-5.1 mmol/L K Normal 3.7 LAB L501.5900 98-107 mmol/L CL Normal 102 LAB L501.6100 21.0-32.0 mmol/L Normal CO2 31.0 LAB L501.6200 5-15 Normal GAP 9 Performed By: #### L500.2500 #### [facility] [address], [address] VITAMIN B12 Collected: 02/18/2018 Status: F Source: [place] 8:52 AM [facility] REPOSITORY TYPE CODE TESTS RESULT OUT OF RANGE REFERENCE UNITS LAB L503.0105 211-911 pg/mL Normal Vitamin B12 404 Performed By: #### L503.0105, L506.1000 #### [facility] [address] [place], [address] VITAMIN D,25 HYDROXY Collected: 02/18/2018 Status: F Source: [place] 8:52 AM [facility] REPOSITORY TYPE CODE TESTS RESULT OUT OF REFERENCE UNITS RANGE LAB L506.1000 29.95-100.01 ng/mL Low Vitamin D 23.5 25-OH Result Comment: Vitamin D 25(OH) Status Range Deficiency <20 ng/mL (50nmol/L) Insuffciency 20 - 30 ng/mL (50 - 75 nmol/L) Sufficiency 30 - 100 ng/mL (75 - 250 nmol/L) Toxicity >100 ng/mL (>250 nmol/L) Performed By: #### L503.0105, L506.1000 #### [facility] [address] [place], [address] HEMOGLOBIN A1C Collected: 02/18/2018 Status: F Source: [place] 8:52 AM [facility] REPOSITORY TYPE CODE TESTS RESULT OUT OF RANGE REFERENCE UNITS LAB L501.9985 4.2-6.3 % Normal HGB A1C 5.7 Performed By: #### L501.9985 #### [facility] [address] [place], [address] CBC W/DIFF, AUTOMATED Collected: 09/13/2017 Status: F Source: [place] 9:29 AM [facility] REPOSITORY TYPE CODE TESTS RESULT OUT OF RANGE REFERENCE UNITS LAB L100.1000 4.4-11.0 K/mm3 Normal WBC 6.4 LAB L100.1200 4.2-5.4 M/mm3 Normal RBC 4.60 LAB L100.1300 12.0-15.0 g/dl Normal HGB 12.6 LAB L100.1400 37-47 % Normal HCT 37.7 LAB L100.1500 81-99 fL Normal MCV 82.0 LAB L100.1600 27.0-32.0 pg Normal MCH 27.4 LAB L100.1700 32-36 g/gl Normal MCHC 33.4 LAB L100.1810 11.6-14.6 % Normal RDW CV 13.1 LAB L100.1820 35.1-43.9 fl Normal RDW SD 38.8 LAB L100.1900 150-450 K/mm3 Normal PLT 212 LAB L100.2000 6.2-12.0 fl Normal MPV 10.5 LAB L100.2100 47-70 % Normal NEUT% 66.8 LAB L100.2200 19-41 % Normal LY% 24.7 LAB L100.2300 0-10 % Normal MONO% 6.0 LAB L100.2400 0-5 % Normal EO% 2.0 LAB L100.2500 0-1 % Normal BASO% 0.3 LAB L100.2550 0.0-0.9 % Normal IM GRAN % 0.200 Result Comment: IG% - Immature Granulocytes (promyelocytes, myelocytes and metamyelocytes) > 1% indicates that a LEFT SHIFT is Present. LAB L100.2620 2.0-7.7 X10 3/uL Normal Absolute Neut 4.3 LAB L100.2720 0.83-4.51 X10 3/ul Normal Absolute Lymph 1.57 Performed By: #### L100.0100 #### [facility] [address] [place], [place], [id number] BASIC METABOLIC Collected: 09/13/2017 Status: F Source: [place] PROFILE ([facility]) 9:29 AM [facility] REPOSITORY TYPE CODE TESTS RESULT OUT OF RANGE REFERENCE UNITS LAB L501.0100 74-106 mg/dL Normal GLU 85 Result Comment: Please note revised GLUCOSE reference range effective 2017. LAB L501.1000 7-18 mg/dL Normal BUN 15 LAB L501.1100 0.55-1.02 mg/dL Normal CREAT,SERUM 0.85 Result Comment: The validity of the calculated GFR AND GFRAA in patients over 70 years has not been determined. Clinical correlation is essential. LAB L501.1110 >60 mL/min Normal EST GFR 73 Result Comment: Non- GFR Calc LAB L501.1115 >60 mL/min Normal EST GFR - AA 88 Result Comment: GFR Calc LAB L501.1300 10-20 RATIO Normal BUN/CRE 17.6 LAB L501.2200 8.5-10.1 mg/dL CA Normal 9.4 LAB L501.5300 136-145 mmol/L NA Normal 142 LAB L501.5600 3.5-5.1 mmol/L K Normal 3.8 LAB L501.5900 98-107 mmol/L CL Normal 101 LAB L501.6100 21.0-32.0 mmol/L High CO2 33.0 LAB L501.6200 5-15 Normal GAP 8 Performed By: #### L500.2500, L501.9520, L506.0400 #### [facility] [address] [place], [place], [address] THYROID STIM HORMONE Collected: 09/13/2017 Status: F Source: [place] ([facility]) 9:29 AM [facility] REPOSITORY TYPE CODE TESTS RESULT OUT OF RANGE REFERENCE UNITS LAB L501.9520 0.358-3.74 uIU/mL Normal TSH 1.72 Performed By: #### L500.2500, L501.9520, L506.0400 #### [facility] [address] [place], [address] T4 FREE DIRECT Collected: 09/13/2017 Status: F Source: [place] 9:29 AM [facility] REPOSITORY TYPE CODE TESTS RESULT OUT OF RANGE REFERENCE UNITS LAB L506.0400 0.76-1.46 ng/dL Normal T4 FREE 0.97 DIRECT Performed By: #### L500.2500, L501.9520, L506.0400 #### [facility] [address] [place], [address] ALLERGIES ALLERGIES DATE TYPE / CODE NAME / CODE REACTION SEVERITY SOURCE 10/07/2016 Drug No Known Unknown [facility] Allergy/4160 Allergies/F00 Hospital 92526(SNOMED [id number](RXNOR Repository CT) M) ENCOUNTERS ENCOUNTERS ADMIT/DISCHARGE ACCOUNT ADMITTING ENCOUNTER LOCATION SOURCE NUMBER CLASS 03/10/2018 [id number] Amb[place] [facility] ing:OPBI Repository 02/18/2018 [id number] Ambulatory [place] [facility] ing:BFHLAB Repository 09/13/2017 [id number] Ambulatory [place] [facility] ing:BFHLAB Repository PAYERS PAYERS ENCOUNTER GUARANTOR PAYER SUBSCRIBER SOURCE 03/10/2018 MEAGAN A Primary JAMIN L [place] [id number] S Insurance:ANTHEMPolic SNELLDOB: [facility] y Number: [id number] [place], [place] [id number] Repository [address]Vaz: 330) Date:8258-06-86NG [phone] ([facility] [id number], [place] [address]MM: 03/10/2018 Secondary NOT GIVENUNK [place] Insurance:SELF PAY [facility] Number: Effective Repository Date:2018-02-18 02/18/2018 Meagan A Primary JAMIN L [place] [id number] Insurance:ANTHEMPolic SNELLDOB: [facility] y [id number] [id number] Repository [address]Pgv: (330) Date:1280-35-33HQ [phone] () [id number], [place] [address]VI: 02/18/2018 Secondary NOT GIVENUNK [place] Insurance:SELF PAY [facility] Number: Effective Repository Date:2018-02-18 09/13/2017 Meagan A Primary JAMIN L [place] [id number] Insurance:ANTHEMPolic SNELLDOB: [facility] [place]: [id number] [id number] Repository [address]Qtc: (330) Date:5311-10-03NV [phone] () [id number], [place] [address]JG: 09/13/2017 Secondary NOT GIVENUNK [place] Insurance:SELF PAY [facility] Number: Effective Repository Date:2017-09-13
== END ==
PROVIDERS: Family Provider Family Medicine; PCP Family Medicine; Referring Provider Family Medicine; Visit Provider Family Medicine
DX: Z12.31 Encounter for screening mammogram for malignant neoplasm of breast (principal)
CPT/HCPCS: 77063; 77067

== ENCOUNTER → 2019-03-20 08:38 | Outpatient (CLI) | payer BC, SELFPAY ==
[2016-10-07 07:17] VITALS: BMI 42.4
[2019-03-20 12:17] LABS: Absolute Lymphocyte Count 1.22 X10^3/uL (0.83-4.51); Absolute Neutrophil Count 3.3 X10^3/uL (2.0-7.7); Basophil# 0.03 X10^3/uL; Basophil% 0.6 % (0-1); Eosinophil# 0.13 X10^3/uL; Eosinophils% 2.7 % (0-5); Hematocrit 42.1 % (37-47); Hemoglobin 13.1 g/dL (12.0-15.0); Lymphocyte # 1.22 X10^3/ul (4.0); Lymphocyte % 24.9 % (19-41); Mean Corp Hgb Conc 31.1 g/dL (32-36); Mean Corpuscular Hgb 26.3 pg (27.0-32.0); Mean Corpuscular Volume 84.5 fL (81-99); Mean Platelet Vol. 10.6 fl (6.2-12.0); Monocyte# 0.24 X10^3/uL; Monocyte% 4.9 % (0-10); NRBC Flagged by Analyzer 0 % (0-5); Neutrophil # 3.25 X10^3/uL (2.7-7.7); Neutrophil % 66.3 % (47-70); Platelet Count 175 K/mm3 (150-450); RBC Distribution Width CV 13.2 % (11.6-14.6); Red Blood Count 4.98 M/mm3 (4.2-5.4); White Blood Count 4.9 K/mm3 (4.4-11.0)
[2019-03-20 12:51] LABS: Vitamin B12 787 pg/mL (211-911); Vitamin D,25 Hydroxy 13.3 ng/mL (29.95-100.01)
[2019-03-20 13:26] LABS: Anion Gap 4 (5-15); BUN 11 mg/dL (7-18); BUN/Creat Ratio 12.6 RATIO (10-20); Calcium,Total 9.4 mg/dL (8.5-10.1); Chloride 109 mmol/L (98-107); Creatinine, Serum 0.87 mg/dL (0.55-1.02); EST Glomerular Filtration Rate 71 mL/min (>60); Est Glom Filt Rate - Afr Amer 85 mL/min (>60); Glucose 84 mg/dL (74-106); Potassium 3.8 mmol/L (3.5-5.1); Sodium Level 143 mmol/L (136-145); Thyroid Stim Hormone (TSH) 2.69 uIU/mL (0.358-3.74)
== END ==
PROVIDERS: PCP Family Medicine; Visit Provider Family Medicine
DX: I10 Essential (primary) hypertension (principal); E55.9 Vitamin D deficiency, unspecified; R79.89 Other specified abnormal findings of blood chemistry
CPT/HCPCS: 36415; 80048; 82306; 82607; 84443; 85025

== ENCOUNTER → 2019-03-29 07:27 | Outpatient (CLI) | payer BC, SELFPAY ==
--- NOTE | 2019-03-29 07:29 | BI_ITS ---
MAMMOGRAPHY - BILATERAL SCREENING REASON FOR EXAM: Female, 59 years old. Routine annual screening examination. PERTINENT HISTORY: Non-contributory. TECHNIQUE: Digital bilateral breast jayleen (3D mammographic acquisition) in the CC and MLO projections. 2-D mediolateral oblique (MLO) and craniocaudad (CC) views of both breasts were obtained. CAD: Full Field Digital Mammography with Computer Added Detection was performed. COMPARISON: Comparison is made with prior examination dated March 10, 2018 and April 29, 2016. FINDINGS: Breast Composition: There are scattered areas of fibroglandular density. There are no dominant masses or suspicious calcifications. A tissue clip marker is once again seen within a tiny nodule in the upper outer quadrant of the left breast No other significant abnormalities are identified. There has been no significant change since the prior study. BI/SCREEN MAMM (CAD) W/JAYLEEN BILAT IMPRESSION: Stable bilateral screening mammogram. Yearly follow-up mammogram recommended. (A) ASSESSMENT CATEGORY: BIRADS Category 2: Benign. A letter regarding these results will be sent to the patient by the facility within 30 days. Approximately 10% of breast cancers are not detected by mammography. A normal mammogram should not delay biopsy of a clinically suspicious abnormality. [id number] Electronically Signed: Les Ma, at 14:37 EST , Service support ,
== END ==
PROVIDERS: PCP Family Medicine; Referring Provider Family Medicine; Visit Provider Family Medicine
DX: Z12.31 Encounter for screening mammogram for malignant neoplasm of breast (principal)
CPT/HCPCS: 77063; 77067

== ENCOUNTER → 2020-04-29 11:25 | Outpatient (CLI) | payer OTHER, SELFPAY ==
[2020-04-29 15:26] LABS: Absolute Neutrophil Count 3.4 X10^3/uL (2.0-7.7); Basophil# 0.03 X10^3/uL; Basophil% 0.6 % (0-1); Eosinophils% 1.9 % (0-5); Hemoglobin 13.6 g/dL (12.0-15.0); Lymphocyte % 28.1 % (19-41); Mean Corp Hgb Conc 30.9 g/dL (32-36); Mean Corpuscular Hgb 26.1 pg (27.0-32.0); Mean Corpuscular Volume 84.3 fL (81-99); Mean Platelet Vol. 10.4 fl (6.2-12.0); Monocyte% 5.6 % (0-10); NRBC Flagged by Analyzer 0 % (0-5); Neutrophil # 3.39 X10^3/uL (2.7-7.7); Neutrophil % 63.4 % (47-70); Platelet Count 223 K/mm3 (150-450); RBC Distribution Width CV 12.5 % (11.6-14.6); RBC Distribution Width SD 37.9 fl (35.1-43.9); Red Blood Count 5.22 M/mm3 (4.2-5.4); White Blood Count 5.3 K/mm3 (4.4-11.0)
[2020-04-29 15:38] LABS: Vitamin B12 355 pg/mL (211-911); Vitamin D,25 Hydroxy 35.6 ng/mL
[2020-04-29 15:50] LABS: ALB/GLOB Ratio 1.1 RATIO (0.9-2.4); AST(SGOT) 12 U/L (15-37); Alanine Aminotransfer ALT/SGPT 21 U/L (13-56); Albumin, Serum 3.7 g/dL (3.2-5.0); Alkaline Phosphatase 73 U/L (45-117); Anion Gap 5 (5-15); BUN 11 mg/dL (7-18); BUN/Creat Ratio 11.7 RATIO (10-20); Calcium,Total 9.3 mg/dL (8.5-10.1); Chloride 104 mmol/L (98-107); Cholesterol 208 mg/dL (200); Creatinine, Serum 0.94 mg/dL (0.55-1.02); EST Glomerular Filtration Rate 65 mL/min (>60); Est Glom Filt Rate - Afr Amer 78 mL/min (>60); Globulin 3.3 g/dL (2.2-4.2); Glucose 80 mg/dL (74-106); High Density Lipoprotein 67 mg/dL; Potassium 3.6 mmol/L (3.5-5.1); Sodium Level 142 mmol/L (136-145); Thyroid Stim Hormone (TSH) 2.59 uIU/mL (0.358-3.74); Triglycerides 80 mg/dL; Very Low Density Lipoprotein 16 mg/dL (5-40)
== END ==
PROVIDERS: PCP Family Medicine; Visit Provider Family Medicine
DX: I10 Essential (primary) hypertension (principal); E55.9 Vitamin D deficiency, unspecified; R79.89 Other specified abnormal findings of blood chemistry
CPT/HCPCS: 36415; 80053; 80061; 82306; 82607; 84443; 85025

== ENCOUNTER → 2020-05-15 07:11 | Outpatient (CLI) | payer OTHER, SELFPAY ==
--- NOTE | 2020-05-15 07:15 | BI_ITS ---
MAMMOGRAPHY - BILATERAL SCREENING REASON FOR EXAM: Female, 60 years old. Routine annual screening examination. PERTINENT HISTORY: Non-contributory. Prior left ultrasound-guided breast biopsy. TECHNIQUE: Digital bilateral breast jayleen (3D mammographic acquisition) in the CC and MLO projections. 2-D mediolateral oblique (MLO) and craniocaudad (CC) views of both breasts were obtained. CAD: Full Field Digital Mammography with Computer Added Detection was performed. COMPARISON: Comparison is made with prior study dated 03/29/2019 and 03/10/2018. FINDINGS: Breast Composition: There are scattered areas of fibroglandular density. There are no dominant masses or suspicious calcifications. A tissue clip marker is seen in the upper outer quadrant of the left breast. Stable 4.4 mm nodule at the level of the tissue marker. No other significant abnormalities are identified. There has been no significant change since the prior study. BI/SCRN MAMM (CAD)W/JAYLEEN BILAT IMPRESSION: Stable bilateral screening mammogram. Yearly follow-up mammogram recommended. (A) ASSESSMENT CATEGORY: BIRADS Category 2: Benign. A letter regarding these results will be sent to the patient by the facility within 30 days. Approximately 10% of breast cancers are not detected by mammography. A normal mammogram should not delay biopsy of a clinically suspicious abnormality. [id number] Electronically Signed: Les Ma MD at 8:38 EDT , Service support ,
== END ==
PROVIDERS: PCP Family Medicine; Referring Provider Family Medicine; Visit Provider Family Medicine
DX: Z12.31 Encounter for screening mammogram for malignant neoplasm of breast (principal)
CPT/HCPCS: 77063; 77067

== ENCOUNTER 2021-06-02 10:03 | Outpatient (CLI) | payer BC, SELFPAY ==
--- NOTE | 2021-06-02 10:07 | BI_ITS ---
MAMMOGRAPHY - BILATERAL SCREENING REASON FOR EXAM: Female, 61 years old. Routine annual screening examination. PERTINENT HISTORY: Non-contributory. TECHNIQUE: Digital bilateral breast jayleen (3D mammographic acquisition) in the CC and MLO projections. 2-D mediolateral oblique (MLO) and craniocaudad (CC) views of both breasts were obtained. CAD: Full Field Digital Mammography with Computer Added Detection was performed. COMPARISON: Comparison is made with prior study of 05/15/2020 and 03/29/2019. FINDINGS: Breast Composition: There are scattered areas of fibroglandular density. There are no dominant masses or suspicious calcifications. A tissue clip marker is once again seen in the tiny nodule in the upper-outer quadrant of the left breast No other significant abnormalities are identified. There has been no significant change since the prior study. BI/SCRN MAMM (CAD)W/JAYLEEN BILAT IMPRESSION: Stable bilateral screening mammogram. Yearly follow-up mammogram recommended. (A) ASSESSMENT CATEGORY: BIRADS Category 2: Benign. A letter regarding these results will be sent to the patient by the facility within 30 days. Approximately 10% of breast cancers are not detected by mammography. A normal mammogram should not delay biopsy of a clinically suspicious abnormality. [id number] Electronically Signed: Les Ma MD at 10:54 EDT ,
== END 2021-06-02 23:59 | disposition home or self-care (01) ==
LOC: OPBI 10:05
PROVIDERS: PCP Family Medicine; Visit Provider Family Medicine
DX: Z12.31 Encounter for screening mammogram for malignant neoplasm of breast (principal)
CPT/HCPCS: 77063; 77067

== ENCOUNTER → 2022-11-16 | Outpatient (CLI) | payer BC, SELFPAY ==
--- NOTE | 2022-11-16 09:32 | RAD_ITS ---
EXAM: XR BILATERAL HIPS WITH PELVIS WHEN PERFORMED, 2 VIEWS CLINICAL INDICATION: MARCEL HIP PAIN MARCEL HIP PAIN TECHNIQUE: Frontal view of the bilateral hips with pelvis when performed. COMPARISON: X-ray pelvis and left hip 07/12/2015. 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 No displaced fracture. No destructive or sclerotic lesions. Note that overlapping bowel shadows may however obscure fine detail. Sacroiliac joint is unremarkable. No widening of the pubic symphysis. SOFT TISSUES: Unremarkable. No soft tissue swelling or gas. RAD/Hips B/L min 2 views w/ Pelvis IMPRESSION: 1. Moderate degenerative arthrosis bilaterally. 2. No demonstrated fracture, dislocation, or destructive osseous lesion. Electronically Signed: Pola Jimenez MD at 3:36 EDT Reading Location ID and State: [facility] / [place] , Service support ,
[2022-11-16 10:31] LABS: Absolute Lymphocyte Count 1.35 X10^3/uL (0.83-4.51); Absolute Neutrophil Count 3.7 X10^3/uL (2.0-7.7); Basophil# 0.04 X10^3/uL; Basophil% 0.7 % (0-1); Eosinophil# 0.14 X10^3/uL; Eosinophils% 2.5 % (0-5); Hematocrit 41.9 % (37-47); Hemoglobin 13.3 g/dL (12.0-15.0); Lymphocyte # 1.35 X10^3/ul (0.83-4.51); Lymphocyte % 24.2 % (19-41); Mean Corp Hgb Conc 31.7 g/dL (32-36); Mean Corpuscular Hgb 26.7 pg (27.0-32.0); Monocyte# 0.33 X10^3/uL; Monocyte% 5.9 % (0-10); NRBC Flagged by Analyzer 0 % (0-5); Neutrophil # 3.69 X10^3/uL (2.7-7.7); Platelet Count 198 K/mm3 (150-450); RBC Distribution Width CV 13.2 % (11.6-14.6); RBC Distribution Width SD 40.1 fl (35.1-43.9); Red Blood Count 4.99 M/mm3 (4.2-5.4); White Blood Count 5.6 K/mm3 (4.4-11.0)
[2022-11-16 10:55] LABS: Vitamin B12 674 pg/mL (211-911); Vitamin D,25 Hydroxy 42.1 ng/mL
[2022-11-16 10:59] LABS: ALB/GLOB Ratio 1.1 RATIO (0.9-2.4); AST(SGOT) 12 U/L (15-37); Alanine Aminotransfer ALT/SGPT 16 U/L (13-56); Albumin, Serum 3.6 g/dL (3.2-5.0); Alkaline Phosphatase 66 U/L (45-117); Anion Gap 5 (5-15); BUN 15 mg/dL (7-18); BUN/Creat Ratio 16.9 RATIO (10-20); Calcium,Total 8.8 mg/dL (8.5-10.1); Chloride 105 mmol/L (98-107); Cholesterol 210 mg/dL (200); Creatinine, Serum 0.89 mg/dL (0.55-1.02); EST Glomerular Filtration Rate 68 mL/min (>60); Est Glom Filt Rate - Afr Amer 83 mL/min (>60); Globulin 3.3 g/dL (2.2-4.2); Glucose 101 mg/dL (74-106); High Density Lipoprotein 82 mg/dL; Potassium 3.4 mmol/L (3.5-5.1); Protein, Total 6.9 g/dL (6.4-8.2); Sodium Level 141 mmol/L (136-145); Triglycerides 59 mg/dL; Very Low Density Lipoprotein 12 mg/dL (5-40)
== END | disposition home or self-care (01) ==
LOC: MTLAB 09:23
PROVIDERS: PCP Nurse Practitioner Family; Referring Provider Nurse Practitioner Family; Visit Provider Nurse Practitioner Family
DX: Z00.01 Encounter for general adult medical examination with abnormal findings (principal); E55.9 Vitamin D deficiency, unspecified; E53.8 Deficiency of other specified B group vitamins; I10 Essential (primary) hypertension
CPT/HCPCS: 36415; 73521; 80053; 80061; 82306; 82607; 85025

== ENCOUNTER → 2023-11-22 | Outpatient (CLI) | payer BC, SELFPAY ==
[2023-11-22 12:11] LABS: Absolute Lymphocyte Count 1.28 X10^3/uL (0.83-4.51); Absolute Neutrophil Count 3.8 X10^3/uL (2.0-7.7); Basophil# 0.03 X10^3/uL; Basophil% 0.5 % (0-1); Eosinophil# 0.12 X10^3/uL; Eosinophils% 2.2 % (0-5); Hemoglobin 13.3 g/dL (12.0-15.0); Lymphocyte # 1.28 X10^3/ul (0.83-4.51); Lymphocyte % 23.2 % (19-41); Mean Corp Hgb Conc 31.7 g/dL (32-36); Mean Corpuscular Hgb 26.2 pg (27.0-32.0); Mean Corpuscular Volume 82.8 fL (81-99); Mean Platelet Vol. 10.2 fl (6.2-12.0); Monocyte# 0.26 X10^3/uL; Monocyte% 4.7 % (0-10); NRBC Flagged by Analyzer 0 % (0-5); Neutrophil # 3.81 X10^3/uL (2.7-7.7); Platelet Count 213 K/mm3 (150-450); RBC Distribution Width CV 13.1 % (11.6-14.6); Red Blood Count 5.07 M/mm3 (4.2-5.4); White Blood Count 5.5 K/mm3 (4.4-11.0)
[2023-11-22 12:54] LABS: Vitamin D,25 Hydroxy 37.4 ng/mL
[2023-11-22 13:35] LABS: ALB/GLOB Ratio 1.1 RATIO (0.9-2.4); AST(SGOT) 16 U/L (15-37); Alanine Aminotransfer ALT/SGPT 19 U/L (13-56); Albumin, Serum 3.5 g/dL (3.2-5.0); Alkaline Phosphatase 64 U/L (45-117); Anion Gap 5 (5-15); BUN 22 mg/dL (7-18); BUN/Creat Ratio 22.4 RATIO (10-20); Calcium,Total 9.3 mg/dL (8.5-10.1); Chloride 105 mmol/L (98-107); Cholesterol 190 mg/dL (200); Creatinine, Serum 0.98 mg/dL (0.55-1.02); EST Glomerular Filtration Rate 60 mL/min (>60); Est Glom Filt Rate - Afr Amer 73 mL/min (>60); Globulin 3.3 g/dL (2.2-4.2); Glucose 94 mg/dL (74-106); High Density Lipoprotein 74 mg/dL; Potassium 3.9 mmol/L (3.5-5.1); Protein, Total 6.8 g/dL (6.4-8.2); Sodium Level 140 mmol/L (136-145); Triglycerides 48 mg/dL; Very Low Density Lipoprotein 10 mg/dL (5-40)
== END | disposition home or self-care (01) ==
LOC: BFHLAB 10:03
PROVIDERS: PCP Nurse Practitioner Family; Referring Provider Nurse Practitioner Family; Visit Provider Nurse Practitioner Family
DX: Z00.01 Encounter for general adult medical examination with abnormal findings (principal); I10 Essential (primary) hypertension; E55.9 Vitamin D deficiency, unspecified
CPT/HCPCS: 36415; 80053; 80061; 82306; 85025

== ENCOUNTER → 2023-11-30 | Outpatient (CLI) | payer BC, SELFPAY ==
--- NOTE | 2023-11-30 07:23 | BI_ITS ---
MAMMOGRAPHY - BILATERAL SCREENING REASON FOR EXAM: Female, 63 years old. Routine annual screening examination. PERTINENT HISTORY: Non-contributory. Prior left ultrasound-guided breast biopsy. TECHNIQUE: Digital bilateral breast jayleen (3D mammographic acquisition) in the CC and MLO projections. 2-D mediolateral oblique (MLO) and craniocaudad (CC) views of both breasts were obtained. CAD: Full Field Digital Mammography with Computer Added Detection was performed. COMPARISON: Comparison is made with prior study of June 02, 2021 and May 15, 2020. FINDINGS: Breast Composition: There are scattered areas of fibroglandular density. There are no dominant masses or suspicious calcifications. A tissue clip marker is once again seen in the tiny nodule in the upper outer quadrant of the left breast No other significant abnormalities are identified. There has been no significant change since the prior study. BI/SCRN MAMM (CAD)W/JAYLEEN BILAT IMPRESSION: Stable bilateral screening mammogram. Yearly follow-up mammogram recommended. (A) ASSESSMENT CATEGORY: BIRADS Category 2: Benign. A letter regarding these results will be sent to the patient by the facility within 30 days. Approximately 10% of breast cancers are not detected by mammography. A normal mammogram should not delay biopsy of a clinically suspicious abnormality. [id number] Electronically Signed: Les Ma MD at 8:21 EDT ,
== END | disposition home or self-care (01) ==
LOC: OPBI 07:21
PROVIDERS: PCP Nurse Practitioner Family; Referring Provider Nurse Practitioner Family; Visit Provider Nurse Practitioner Family
DX: Z12.31 Encounter for screening mammogram for malignant neoplasm of breast (principal)
CPT/HCPCS: 77063; 77067

== ENCOUNTER → 2024-05-03 | Outpatient (CLI) | payer BC, SELFPAY ==
--- NOTE | 2024-05-03 12:58 | RAD_ITS ---
EXAM: XR Chest, 2 Views CLINICAL INDICATION: COUGH TECHNIQUE: Frontal and lateral views of the chest. COMPARISON: No relevant prior studies available. FINDINGS: LUNGS AND PLEURAL SPACES: Unremarkable. No consolidation. No pneumothorax. HEART: Unremarkable. No cardiomegaly. MEDIASTINUM: Unremarkable. Normal mediastinal contour. BONES/JOINTS: Unremarkable. No acute fracture. RAD/Chest PA and Lateral IMPRESSION: No acute cardiopulmonary process. Reading [facility]
== END | disposition home or self-care (01) ==
LOC: MTRAD 12:58
PROVIDERS: PCP Nurse Practitioner Family; Referring Provider Physician Assistant; Visit Provider Physician Assistant
DX: R05.9 Cough, unspecified (principal)
CPT/HCPCS: 71046